=== PATIENT | male | born 1945 | race Caucasian/White ===

== ENCOUNTER → 2017-10-16 | Outpatient (CLI) | payer MEDICARE, OTHER ==
[~2017-10-16] VITALS: Ht 175.3 cm; Wt 81.2 kg
[~2017-10-16] MED LIST: AMIODIPINE BESYLATE PO; AMLOPIDINE PO; CELEBREX PO; CITALOPRAM20 MG PO; FERROUS SU325 MG/TAB PO; FLOMAX0.4 MG PO; FOLIC ACID 40400 MCG PO; LEVOTHYROXIN0.025 MG PO; MULTIPLE VITAMI1 CAP PO; NORVASC10 MG PO; PRILOSEC 20MG20 MG PO; SIMVASTATIN40 MG PO; TYLENOL 500MG500 MG PO; VITAMIN C BUFF500 MG PO; XANAX0.5 MG PO
== END ==
LOC: SUN.CLI 11:57
DX: C20 Malignant neoplasm of rectum (principal)

== ENCOUNTER 2017-10-25 14:00 | Outpatient (RCR) | payer MEDICARE, OTHER ==
[2017-10-14 10:15] VITALS: BP 100/77; PULSE 67; TEMP 98.7
[2017-10-15 10:37] VITALS: BP 88/51; PULSE 58; TEMP 97.3
[2017-10-18 14:00] VITALS: BP 123/78; PULSE 58; TEMP 97.2
[2017-10-18 14:09] LABS: HEMATOCRIT 40.9 % (42.0-52.0); MEAN CELL VOLUME 95 fl (80.0-100.0); MEAN CORPUSCULAR HEMOGLOBIN 32 pg (27.0-31.0); MEAN CORPUSCULAR HGB CONC 34 g/dl (33.0-37.0); MEAN PLATELET VOLUME 8.6 fl (7.4-10.4); PLATELET COUNT 217 K/mm3 (130-400); RED BLOOD COUNT 4.32 M/mm3 (4.20-5.60); REDCELL DISTRIBUTION WIDTH-CV 12.1 % (11.5-14.5)
[2017-10-18 14:39] LABS: BAND 10 % (0-10); LYMPHOCYTE 30 % (20.0-51.0); NEUTROPHILS 54 % (42.0-75.2)
[2017-10-18 14:40] LABS: PLATELET ESTIMATE NORMAL (NORMAL)
[~2017-10-25] VITALS: Ht 175.3 cm; Wt 93.2 kg
[2017-10-25 14:25] VITALS: BP 105/63; PULSE 55; TEMP 98.3
[2017-10-25 14:31] LABS: HEMATOCRIT 37.2 % (42.0-52.0); HEMOGLOBIN 13.1 g/dl (13.5-18.0); MEAN CELL VOLUME 92 fl (80.0-100.0); MEAN CORPUSCULAR HEMOGLOBIN 32 pg (27.0-31.0); MEAN CORPUSCULAR HGB CONC 35 g/dl (33.0-37.0); MEAN PLATELET VOLUME 9.1 fl (7.4-10.4); PLATELET COUNT 140 K/mm3 (130-400); RED BLOOD COUNT 4.05 M/mm3 (4.20-5.60); REDCELL DISTRIBUTION WIDTH-CV 12.4 % (11.5-14.5)
[2017-10-25 14:55] LABS: ANISOCYTOSIS 1+; BAND 6 % (0-10); EOSINOPHIL 1 % (0-4); LYMPHOCYTE 23 % (20.0-51.0); NEUTROPHILS 65 % (42.0-75.2); PLATELET ESTIMATE NORMAL (NORMAL)
== END 2017-10-25 14:41 | disposition home or self-care (01) ==
LOC: EUO 14:00
PROVIDERS: Internal Medicine Medical Oncology
DX: Z51.11 Encounter for antineoplastic chemotherapy (principal); C20 Malignant neoplasm of rectum; C18.8 Malignant neoplasm of overlapping sites of colon; Z45.2 Encounter for adjustment and management of vascular access device
CPT/HCPCS: C1751; J1644